=== PATIENT | female | born 1975 | race Caucasian/White ===

== ENCOUNTER 2017-03-16 09:49 | Emergency (ER) | payer MEDICAID ==
[~2017-03-16] VITALS: Ht 165.1 cm; Wt 80.8 kg
[2017-03-16 10:56] VITALS: BP 126/62
== END 2017-03-16 10:56 | disposition home or self-care (01) ==
LOC: ED 09:49
DX: S61.211D Laceration without foreign body of left index finger without damage to nail, subsequent encounter (principal); Z88.8 Allergy status to other drugs, medicaments and biological substances; Z88.6 Allergy status to analgesic agent; Y92.89 Other specified places as the place of occurrence of the external cause; W26.0XXD Contact with knife, subsequent encounter; Y99.8 Other external cause status

== ENCOUNTER 2017-03-23 09:58 | Emergency (ER) | payer MEDICAID ==
[2017-03-23 10:02] VITALS: BP 105/66
== END 2017-03-23 10:44 | disposition home or self-care (01) ==
LOC: ED 09:58
DX: S61.211D Laceration without foreign body of left index finger without damage to nail, subsequent encounter (principal); Z88.6 Allergy status to analgesic agent; Z88.8 Allergy status to other drugs, medicaments and biological substances; X58.XXXD Exposure to other specified factors, subsequent encounter; Y99.8 Other external cause status; Y92.89 Other specified places as the place of occurrence of the external cause

== ENCOUNTER 2019-05-15 06:48 | Emergency (ER) | payer MEDICAID ==
[~2019-05-15] VITALS: Ht 167.6 cm; Wt 81.2 kg
[2019-05-15 06:50] VITALS: Ht 167.6 cm; Wt 81.2 kg
[2019-05-15 08:10] VITALS: BP 121/72
== END 2019-05-15 08:10 | disposition home or self-care (01) ==
LOC: ED 06:48
DX: S46.812A Strain of other muscles, fascia and tendons at shoulder and upper arm level, left arm, initial encounter (principal); Z88.6 Allergy status to analgesic agent; W10.8XXA Fall (on) (from) other stairs and steps, initial encounter; Y93.89 Activity, other specified; Y92.89 Other specified places as the place of occurrence of the external cause; Y99.8 Other external cause status
CPT/HCPCS: Q0092